=== PATIENT | female | born 1990 | race Caucasian/White ===

== ENCOUNTER 2023-05-06 08:39 | Emergency (ER) | payer OTHER, SELFPAY ==
--- NOTE | ~2023-05-06 | XR_ITS ---
EXAMINATION: XR hip RT 2V w AP pelvis INDICATION: Right hip pain TECHNIQUE: AP view the pelvis and two views of the right hip are obtained. COMPARISON: None available FINDINGS: Bone alignment is normal. There is no fracture. Phleboliths are noted in the right pelvis. IMPRESSION: 1. No acute osseous abnormality. Reviewed, dictated and finalized at location L. ETING SUPPORT COORDINATOR
--- NOTE | ~2023-05-06 | XR_ITS ---
EXAMINATION: XR knee RT min 4V DATE: 05/06/2023 11:12 INDICATION: Right knee pain TECHNIQUE: Five views of the right knee were obtained. COMPARISON: None. FINDINGS: Alignment is normal. No fracture or osteochondral lesion. There is mild tricompartmental os teoarthritis characterized by tiny marginal osteophytes. No joint effusion/synovitis. There is infra patellar soft tissue swelling of the knee. IMPRESSION: 1. No acute osseous abnormality. Reviewed, dictated and finalized at location L. GER USER EXPERIENCE
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
[2023-05-06 09:01] VITALS: BP 135/90; PULSE 80; RESP 16; TEMP 36.9; O2SAT 97
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
== END 2023-05-06 13:45 | disposition home or self-care (01) ==
LOC: ANHED 13:30
PROVIDERS: Emergency Provider Physician Assistant
DX: S89.91XA Unspecified injury of right lower leg, initial encounter (principal); S22.080A Wedge compression fracture of T11-T12 vertebra, initial encounter for closed fracture; S79.911A Unspecified injury of right hip, initial encounter; V49.40XA Driver injured in collision with unspecified motor vehicles in traffic accident, initial encounter; M47.814 Spondylosis without myelopathy or radiculopathy, thoracic region; M47.816 Spondylosis without myelopathy or radiculopathy, lumbar region
CPT/HCPCS: 72128; 72131; 73502; 73564; 81025; 99284